=== PATIENT | male | born 1935 | race Caucasian/White ===

== ENCOUNTER 2016-06-15 12:52 | Outpatient (RCR) | payer MEDICARE | END 2016-09-13 | disposition home or self-care (01) | LOC: DT 12:52 | PROVIDERS: ATTEND Family Medicine | DX: E11.9 Type 2 diabetes mellitus without complications (principal); Z71.3 Dietary counseling and surveillance | CPT/HCPCS: 97803 ==

== ENCOUNTER 2016-10-24 09:43 | Outpatient (RCR) | payer MEDICARE ==
[~2016-10-24 09:43] MED LIST: ATOR20TA PO; CPR500T PO; FNST5T PO; LISI1TAB8 PO; METF500T4 PO; NIAC1000 PO; ONDA4TAB8 PO; [UNRECOGNIZED DRUG - OTHER] PO
== END 2017-01-10 17:09 | disposition home or self-care (01) ==
LOC: DT 09:43
PROVIDERS: ATTEND Family Medicine
DX: E11.9 Type 2 diabetes mellitus without complications (principal); Z71.3 Dietary counseling and surveillance
CPT/HCPCS: 97803

== ENCOUNTER → 2016-11-29 | Outpatient (CLI) | payer MEDICARE ==
[2016-11-29 14:14] LABS: BAND NEUTROPHILS % 0 % (0-6); EOSINOPHILS % 1 % (0-4); MEAN CORPUSCULAR HEMOGLOBIN 27.4 PG (26.0-34.0); MEAN CORPUSCULAR VOLUME 81 FL (80-100); MONOCYTES # 0.6 #; MONOCYTES % 8 % (3-11); PLATELET COUNT 230 10^3uL (150-450); WHITE BLOOD COUNT 8.41 10^3uL (4.0-11.0)
[2016-11-29 14:15] LABS: RBC MORPH NORMAL (NORMAL)
[2016-11-29 14:16] LABS: LYMPHOCYTES # 0.9 #
[2016-11-29 14:17] LABS: SEGMENTED NEUTROPHILS % 74 % (51-67); TOTAL CELLS COUNTED 100
[2016-11-29 14:30] LABS: ALBUMIN 4.2 g/dL (3.4-5.0); ANION GAP 16.8 MEQ/L (3-15); CALCULATED IONIZED CALCIUM 4.2 mg/dL (3.8-4.6); TOTAL PROTEIN 7.1 g/dL (6.4-8.5)
== END ==
LOC: LAB 13:54
PROVIDERS: ATTEND Internal Medicine Hematology & Oncology
DX: C7A.012 Malignant carcinoid tumor of the ileum (principal)
CPT/HCPCS: 36415; 80053; 83615; 83735; 84100; 85007; 85027; 86316

== ENCOUNTER → 2016-12-02 | Outpatient (CLI) | payer MEDICARE ==
--- NOTE | 2016-12-02 10:09 | Diagnostic Imaging Report ---
PROCEDURE: CT chest pelvis with and abdomen with and without contrast. TECHNIQUE: Multiple contiguous axial images were obtained through the chest, abdomen and pelvis after uneventful bolus administration of intravenous contrast. Precontrast acquisitions were acquired through the abdomen. INDICATION: Neuroendocrine carcinoma. COMPARISON: 04/06/2016. Thorax: Axillary lymph nodes are negative. Mediastinal and hilar lymph nodes show no evidence for neoplasm. 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 No pericardial or pleural effusion. No pulmonary mass or nodule is identified. No osteolytic or osteoblastic lesion is seen. IMPRESSION: Negative CT of the thorax. No evidence for metastasis. No significant change. Abdomen/ pelvis: COMPARISON: 04/06/2016. The liver is negative. The spleen is negative. Adrenals are negative. The head and body of the pancreas are normal. There is a 1.1-cm enhancing nodule in the tail of the pancreas which becomes nearly isodense with the pancreas on delayed images. It is only seen in the arterial phase. It has been stable since 08/01/2012, CT. Fat stranding in the mesentery is present without adenopathy. This finding is stable from 04/06/2016. Aorta is negative. There is no adenopathy in the gastrohepatic or gastrosplenic ligaments. The retrocrural lymph nodes are negative. Retroperitoneal, pelvic, and inguinal lymph nodes are negative. A total left hip arthroplasty is present obscuring some pelvic anatomy. There is a subtle hemangioma of L3 vertebra probably present. There is facet arthropathy in the spine with a right iliac bone island. Kidneys are negative for hydronephrosis, stone, or significant mass. There is a small hypodensity in the left kidney superior pole, probably a cyst, a change from 04/28/2015. No bowel wall thickening, free air, or free fluid is seen. The prostate gland is enlarged. Urinary bladder is obscured by the artifact from the hip arthroplasty. IMPRESSION: 1. Stable mild chronic mesenteritis changes. 2. 1.1 cm hypervascular nodule in the tail of the pancreas has been stable since 08/11/2012. 3. No new abnormalities are identified. Dictated by: Dictated on workstation # [id number]
== END ==
LOC: RAD 09:13
PROVIDERS: ATTEND Internal Medicine Hematology & Oncology
DX: C7A.012 Malignant carcinoid tumor of the ileum (principal)
CPT/HCPCS: 71260; 74178; 81050; 83497; Q9967; 36415